=== PATIENT | female | born 1935 | race Caucasian/White ===

== ENCOUNTER 2019-01-14 14:46 | Emergency (ER) | payer MEDICARE, OTHER ==
--- NOTE | 2019-01-14 16:11 | EDM.PDOC ---
ED HPI GENERAL MEDICAL PROBLEM - General Chief Complaint: Neurological Problem Stated Complaint: unresponsive episode Time Seen by Provider: 01/14/19 14:52 Source of Information: Reports: Patient, Family, Other ([facility] staff) History Limitations: Reports: No Limitations - History of Present Illness INITIAL COMMENTS - FREE TEXT/NARRATIVE: Patient sent here for evaluation after two episodes today where she appeared to fall asleep in her chair and people were unable to arouse her. First episode was at 11:30. Second episode 13:30. Each one lasted 10-15 minutes. Unable to arouse patient with voice/touch. reports that patient is usually easily awakened by touching her shoulder. No observed seizure activity. No observed post-ictal behavior. Vital signs stable per [facility] staff. Once patient was able to be awakened she was back to her baseline per . She is acting normally at this time. Patient has no complaints and does not recall having any problems earlier today. She feels this is a normal day for her. No history of similar problems in past. No recent medication changes. Patient does have diagnosis of Alzheimer's/dementia. Needs some assistance with ADLs at [facility]. No other reported changes. - Related Data Allergies Allergy/AdvReac Type Severity Reaction Status Date / Time sulfamethizole Allergy Rash Verified 01/14/19 15:34 soap Allergy Intermediate Rash Uncoded 01/14/19 15:34 Home Meds: Home Meds Vitamin B Complex [B Complex] 1 each PO DAILY 10/15/13 [History] Rosuvastatin [Crestor] 5 mg PO BEDTIME 08/26/16 [History] Thiamine HCl [Vitamin B-1] 100 mg PO BEDTIME 10/03/16 [History] Acetaminophen [Tylenol] 650 mg PO Q6HR PRN 10/04/16 [History] Sertraline [Zoloft] 50 mg PO BEDTIME 10/04/16 [History] predniSONE [Prednisone] 3 mg PO DAILY 11/07/16 [History] Sennosides/Docusate Sodium [Senna-Docusate Sodium] 1 tab PO BID@0800,1800 [History] Amoxicillin 4 cap PO ASDIRECTED 05/06/17 [History] Polyethylene Glycol 3350 [MiraLAX] 17 gm PO Q3D 05/06/17 [History] Aspirin 81 mg PO DAILY #30 tab.chew 05/12/17 [Rx] Furosemide [Lasix] 20 mg PO DAILY #30 tablet 05/12/17 [Rx] Denosumab [Prolia] 60 mg INJECT Q6M 01/14/19 [History] Donepezil HCl [Aricept] 10 mg PO DAILY 01/14/19 [History] Levothyroxine 25 mcg PO ACBREAKFAST 01/14/19 [History] Memantine [Namenda] 10 mg PO BID 01/14/19 [History] Methyl Salicylate/Menthol [Muscle Rub] 1 applic TP DAILY PRN 01/14/19 [History] Metoprolol Succinate [Toprol XL] 25 mg PO DAILY 01/14/19 [History] Metoprolol Succinate [Toprol XL] 50 mg PO DAILY@20 01/14/19 [History] Past Medical History HEENT History: Reports: Impaired Vision Cardiovascular History: Reports: Afib, Heart Failure, Heart Valve Replacement, Hypertension Respiratory History: Reports: Pneumonia, Recurrent Gastrointestinal History: Reports: GERD Genitourinary History: Reports: Urinary Incontinence SOLDERING MACHINE TENDER History: Reports: , Other (See Below) Other SOLDERING MACHINE TENDER History: 5 c-sections Musculoskeletal History: Reports: Arthritis Neurological History: Reports: Alzheimers Disease, CVA, Head Trauma, Neuropathy , Peripheral, TIA Psychiatric History: Reports: Alzheimers Disease, Anxiety, Dementia Other Psychiatric History: confusion, forgetfulness Endocrine/Metabolic History: Reports: Obesity/BMI 30+ - Infectious Disease History Infectious Disease History: Reports: Chicken Pox, Measles, Mumps - Past Surgical History Cardiovascular Surgical History: Reports: Valve Replacement GI Surgical History: Reports: None Musculoskeletal Surgical History: Reports: None Social & Family History - Family History Family Medical History: Noncontributory - Tobacco Use Smoking Status *Q: Never Smoker Second Hand Smoke Exposure: Yes - Caffeine Use Caffeine Use: Reports: Coffee Other Caffeine Use: daily cup of coffee Caffeine Use Comment: not assessed - Recreational Drug Use Recreational Drug Use: No ED ROS GENERAL - Review of Systems Review Of Systems: ROS reveals no pertinent complaints other than HPI. Neurological: Reports: Pre-Existing Deficit (mild droop left corner of mouth, mild left arm weakness) ED EXAM, GENERAL - Physical Exam Exam: See Below Free Text/Narrative:: Patient sitting in wheelchair. Visiting with . Appears comfortable. Exam Limited By: No Limitations General Appearance: Alert, WD/WN, No Apparent Distress Eye Exam: Bilateral Eye: EOMI, PERRL Ears: Normal External Exam Nose: No: Nasal Deformity, Nasal Swelling, Nasal Drainage Throat/Mouth: Normal Lips, Normal Voice, No Airway Compromise, Other (very slight left sided droop corner of mouth) Head: Atraumatic, Normocephalic Neck: Normal Inspection, Supple, Non-Tender, Full Range of Motion Respiratory/Chest: No Respiratory Distress, Lungs Clear, Normal Breath Sounds, No Accessory Muscle Use Cardiovascular: Regular Rate, Rhythm, No Murmur GI/Abdominal: Normal Bowel Sounds, Soft, Non-Tender, No Distention (Female) Exam: Deferred Rectal (Female) Exam: Deferred Back Exam: No: CVA Tenderness (L), CVA Tenderness (R), Muscle Spasm Extremities: Non-Tender, Other (Has good outsole caser strength bilaterally/equal. Left arm overall appears mildly weaker than right on other strength tests. Lower legs have equal tone and strength. ) Neurological: Alert, Oriented (Oriented to self/location/month/year). No: Inattentive, Confused, Disoriented, Slow to Respond Psychiatric: Normal Affect, Normal Mood Skin Exam: Warm, Dry, Intact, Normal Color EKG INTERPRETATION EKG Date: 01/14/19 Time: 14:04 Rhythm: Other (1st degree AV block) Rate (Beats/Min): 81 [place]: Normal P-Wave: Present QRS: Normal ST-T: Other (No obvious acute ST elevation/depression.) Comparison: No Change (compared to EKG from 2016, similar morphology in all leads, 1st degree block also present in previous EKG) Course - Vital Signs Last Recorded V/S: Last Vital Signs Temp 36.2 C 01/14/19 14:50 Pulse 80 01/14/19 14:50 Resp 18 01/14/19 14:50 BP 138/75 01/14/19 14:50 Pulse Ox 100 01/14/19 14:50 - Orders/Labs/Meds Orders: Active Orders 24 hr Category Date Time Status EKG Documentation Completion [RC] ASDIRECTED Care 01/14/19 14:53 Ordered Head wo Cont [CT] Stat Exams 01/14/19 14:56 Ordered EKG 12 Lead [EK] Stat Ther 01/14/19 14:53 Ordered Labs: Laboratory Tests 01/14/19 01/14/19 01/14/19 Range/Units 15:06 15:06 15:06 WBC 7.7 (4.0-10.2) K/uL RBC 4.15 (3.77-5.09) M/uL Hgb 14.0 (11.7-15.5) g/dL Hct 42.4 (34.0-46.0) % MCV 102.2 H (84.0-98.0) fL MCH 33.7 H (28.2-33.3) pg MCHC 33.0 (31.7-36.0) g/dL RDW 12.7 (11.2-14.1) % Plt Count 156 (150-350) K/uL Neut % (Auto) 67.5 (45.0-80.0) % Lymph % (Auto) 18.1 (10.0-50.0) % [place] % (Auto) 11.9 (2.0-14.0) % Eos % (Auto) 2.1 (0.0-5.0) % Baso % (Auto) 0.4 (0.0-2.0) % Neut # (Auto) 5.17 (1.40-7.00) K/uL Lymph # (Auto) 1.39 (0.50-3.50) K/uL [place] # (Auto) 0.91 (0.00-1.00) K/uL Eos # (Auto) 0.16 (0.00-0.50) K/uL Baso # (Auto) 0.03 (0.00-0.20) K/uL Sodium 141 (136-145) mmol/L Potassium 4.6 (3.5-5.1) mmol/L Chloride 103 (98-107) mmol/L Carbon Dioxide 31.7 (21.0-32.0) mmol/L BUN 34 H (7-18) mg/dL Creatinine 1.46 H (0.51-1.17) mg/dL Est Cr Clr Drug Dosing 20.24 mL/min Estimated GFR (MDRD) 34 mL/min Glucose 90 (74-106) mg/dL Calcium 9.4 (8.5-10.1) mg/dL Magnesium 2.1 (1.8-2.4) mg/dL Total Bilirubin 0.3 (0.2-1.0) mg/dL AST 18 (15-37) U/L ALT 21 (12-78) U/L Alkaline Phosphatase 135 H (46-116) IU/L Troponin I 0.003 (0.000-0.056) ng/mL Total Protein 6.7 (6.4-8.2) g/dL Albumin 3.3 L (3.4-5.0) g/dL Specimen Type Urine Color Urine Appearance Urine pH (5.0-9.0) Ur Specific [place] (1.005-1.030) Urine Protein (NEGATIVE) mg/dL Urine Glucose (UA) (NEGATIVE) mg/dL Urine Ketones (NEGATIVE) mg/dL Urine Occult Blood (NEGATIVE) Urine Nitrite (NEGATIVE) Urine Bilirubin (NEGATIVE) Urine Urobilinogen (0.2-1.0) E.U./dL Ur Leukocyte Esterase (NEGATIVE) Urine RBC /HPF Urine WBC /HPF Ur Epithelial Cells /LPF Urine Bacteria (NONE TO FEW) /HPF Urinalysis Comment 01/14/19 Range/Units 16:10 WBC (4.0-10.2) K/uL RBC (3.77-5.09) M/uL Hgb (11.7-15.5) g/dL Hct (34.0-46.0) % MCV (84.0-98.0) fL MCH (28.2-33.3) pg MCHC (31.7-36.0) g/dL RDW (11.2-14.1) % Plt Count (150-350) K/uL Neut % (Auto) (45.0-80.0) % Lymph % (Auto) (10.0-50.0) % [place] % (Auto) (2.0-14.0) % Eos % (Auto) (0.0-5.0) % Baso % (Auto) (0.0-2.0) % Neut # (Auto) (1.40-7.00) K/uL Lymph # (Auto) (0.50-3.50) K/uL [place] # (Auto) (0.00-1.00) K/uL Eos # (Auto) (0.00-0.50) K/uL Baso # (Auto) (0.00-0.20) K/uL Sodium (136-145) mmol/L Potassium (3.5-5.1) mmol/L Chloride (98-107) mmol/L Carbon Dioxide (21.0-32.0) mmol/L BUN (7-18) mg/dL Creatinine (0.51-1.17) mg/dL Est Cr Clr Drug Dosing mL/min Estimated GFR (MDRD) mL/min Glucose (74-106) mg/dL Calcium (8.5-10.1) mg/dL Magnesium (1.8-2.4) mg/dL Total Bilirubin (0.2-1.0) mg/dL AST (15-37) U/L ALT (12-78) U/L Alkaline Phosphatase (46-116) IU/L Troponin I (0.000-0.056) ng/mL Total Protein (6.4-8.2) g/dL Albumin (3.4-5.0) g/dL Specimen Type Urinblad Urine Color Yellow Urine Appearance Clear Urine pH 5.5 (5.0-9.0) Ur Specific [place] 1.020 (1.005-1.030) Urine Protein Negative (NEGATIVE) mg/dL Urine Glucose (UA) Negative (NEGATIVE) mg/dL Urine Ketones Negative (NEGATIVE) mg/dL Urine Occult Blood Negative (NEGATIVE) Urine Nitrite Negative (NEGATIVE) Urine Bilirubin Negative (NEGATIVE) Urine Urobilinogen 0.2 (0.2-1.0) E.U./dL Ur Leukocyte Esterase Trace H (NEGATIVE) Urine RBC Not seen /HPF Urine WBC 0-5 /HPF Ur Epithelial Cells Many H /LPF Urine Bacteria Moderate H (NONE TO FEW) /HPF Urinalysis Comment - Radiology Interpretation CT Results Date: 01/14/19 CT Results Time: 15:37 (Radiology did not note any acute intracranial process. ) - Re-Assessments/Exams Free Text/Narrative Re-Assessment/Exam: 01/14/19 16:28 CBC/Chem overall unremarkable. BUN/Cr elevated, but not unusually so when compared to previous lab results. UA did not show any elevation in WBCs. Patient remained stable and alert in ER. Uncertain as to cause of unresponsiveness observed earlier. Per patient does not usually sleep or nap this deeply. Could be atypical seizure activity. Review of literature does show that episodes of unexplained unresponsiveness has been observed in patients with diagnosis of dementia, and that these patients usually have unremarkable workups for these episodes. Call placed to [place] and patient reviewed with from Neurology. He agreed that appropriate initial workup had been performed in the ER today and did not suggest any further acute testing/evaluation. He recommended continued observation for any further changes or similar episodes. If further episodes are noted, he said that patient could be sent to [place] and admitted there to have EEGs/additional workup as needed. did not suggest an observation admission as patient's with diagnosis of dementia can have adverse effects when usual surroundings are changed which could cloud the workup for this existing problem. This plan was relayed to patient and patient's . They were agreeable with this plan. Departure - Departure Time of Disposition: 16:37 Disposition: DC/Tfer to SNF 03 Condition: Good Clinical Impression: Episode of unresponsiveness - Discharge Information *PRESCRIPTION DRUG MONITORING PROGRAM REVIEWED*: Not Applicable *COPY OF PRESCRIPTION DRUG MONITORING REPORT IN PATIENT INOCENCIA: Not Applicable Forms: ED Department Discharge Additional Instructions: Observe for any additional changes as well as further similar episodes of apparent unresponsiveness. If further episodes are observed, [place] [facility] is willing to admit Susy and evaluate her/perform additional testing. Otherwise follow up on snf rounds with [facility] [place]. - My Orders Last 24 Hours: My Active Orders 01/14/19 14:53 EKG Documentation Completion [RC] ASDIRECTED EKG 12 Lead [EK] Stat 01/14/19 14:56 Head wo Cont [CT] Stat - Assessment/Plan Last 24 Hours: My Active Orders 01/14/19 14:53 EKG Documentation Completion [RC] ASDIRECTED EKG 12 Lead [EK] Stat 01/14/19 14:56 Head wo Cont [CT] Stat
[2019-01-14 18:11] VITALS: BP 138/79
== END 2019-01-14 16:50 ==
LOC: LL.ED 14:46
DX: R41.82 Altered mental status, unspecified (principal); I11.0 Hypertensive heart disease with heart failure; I50.9 Heart failure, unspecified; E66.9 Obesity, unspecified; Z88.2 Allergy status to sulfonamides; Z91.048 Other nonmedicinal substance allergy status; Z79.899 Other long term (current) drug therapy; Z77.22 Contact with and (suspected) exposure to environmental tobacco smoke (acute) (chronic)
CPT/HCPCS: 36415; 70450; 80053; 81001; 83735; 84484; 85025; 93005; 99285-25